=== PATIENT | female | born 1990 | race Hispanic/Latino ===

== ENCOUNTER 2022-02-19 01:04 | Emergency (ER) | payer SELFPAY ==
[2022-02-19] MEDS ORDERED: SODIUM CHLORIDE 0.9% 1000 ML 1,000 ML IV ONE (03:26)
[2022-02-19] MEDS ORDERED: NALOXONE 2 MG/2 ML INJ IV ONE (03:26)
[2022-02-19 04:01] LABS: Hematocrit 37.5 % (30.3-42.9); Hemoglobin 11.9 gm/dl (10.1-14.3); Mean Corpuscular HGB Conc 32 % (30-34); Mean Corpuscular Volume 80 fl (79-97); Platelet Count 256 K/mm3 (140-440); Red Blood Count 4.71 M/mm3 (3.65-5.03); Red Cell Distribution Width 20.9 % (13.2-15.2)
--- NOTE | 2022-02-19 04:20 | Emergency Department Report ---
ED General Adult HPI - General Chief complaint: Overdose Stated complaint: OVERDOSE PUI?: No Time Seen by Provider: 02/19/22 03:24 Source: patient Mode of arrival: Wheelchair Limitations: No Limitations - History of Present Illness Initial comments: This is a 31-year-old female brought in by EMS with concern of overdose which sridevi botello's friend left him at an hotel. Per EMS, pranav responded well to Narcan after it was given. On arrival patient is asleep again and hard to arouse on my arrival. - Related Data Previous Rx's Medication Instructions Recorded Last Taken Type Naloxone HCl [Narcan Nasal [place]] 4 mg NS PRN #2 spray 02/19/22 Unknown Rx Allergies Allergy/AdvReac Type Severity Reaction Status Date / Time Unable to Assess Allergy Verified 02/19/22 03:42 ED Review of Systems ROS: Stated complaint: OVERDOSE Other details as noted in HPI Comment: Unobtainable due to pts medical conditions Constitutional: no symptoms reported Eyes: as per HPI ENT: as per HPI Respiratory: no symptoms reported Cardiovascular: as per HPI Endocrine: no symptoms reported, see HPI Gastrointestinal: as per HPI Genitourinary: as per HPI Musculoskeletal: as per HPI Skin: as per HPI Neurological: as per HPI Psychiatric: as per HPI Hematological/Lymphatic: as per HPI ED Past Medical Hx - Past Medical History Previous Medical History?: No - Surgical History Past Surgical History?: No - Social History Smoking Status: Never Smoker Substance Use Type: None - Medications Home Medications: Home Medications Medication Instructions Recorded Confirmed Last Taken Type Naloxone HCl [Narcan Nasal [place]] 4 mg NS PRN #2 spray 02/19/22 Unknown Rx ED Physical Exam - General Limitations: No Limitations General appearance: in no apparent distress, other (ASLEEP) - Head Head exam: Present: atraumatic, normocephalic, normal inspection - Eye Eye exam: Present: normal appearance, PERRL, EOMI - ENT ENT exam: Present: normal exam - Neck Neck exam: Present: normal inspection - Respiratory Respiratory exam: Present: normal lung sounds bilaterally, other (NORMAL BREATHING PATTERN). Absent: respiratory distress - Cardiovascular Cardiovascular Exam: Present: regular rate, normal rhythm - GI/Abdominal GI/Abdominal exam: Present: soft - Extremities Exam Extremities exam: Present: normal inspection, full ROM, normal capillary refill - Back Exam Back exam: Present: normal inspection, full ROM - Neurological Exam Neurological exam: Present: alert, altered, oriented X3, CN II-XII intact, normal gait - Psychiatric Psychiatric exam: Present: normal affect, normal mood - Skin Skin exam: Present: normal color ED Course Vital Signs 02/19/22 01:04 Temperature 98 F Pulse Rate 77 Respiratory 18 Rate Blood Pressure 102/70 O2 Sat by Pulse 100 Oximetry - Reevaluation(s) Reevaluation #1: 02/19/22 05:12 PATIENT EASILY AWAKEN BY NURSING AND X-RAY TECH STAFF. LABS UNREMARKABLE; AND STILL PENDING UDS. CXR WITH MILD PULMONARY EDEMA AND PATIENT SATING WELL ON ROOM AIR WITHOUT ANY ACCESSORY MUSCLE USE. I WILL GO AHEAD AND D/C THE PATIENT MOTHER IS HERE. SHE IS TO MAKE A FOLLOW UP APPOINTMENT WITH PCP TO BE SEEN WITHIN 3 DAYS. RETURN TO ER IF ANY NEW SYMPTOMS. ED Medical Decision Making - Lab Data Result diagrams: 02/19/22 03:41 02/19/22 03:41 Critical care attestation.: If time is entered above; I have spent that time in minutes in the direct care of this critically ill patient, excluding procedure time. ED Disposition Clinical Impression: Opioid overdose, Pulmonary edema Disposition: 01 HOME / SELF CARE / HOMELESS Is pt being admited?: No Does the pt Need Aspirin: No Condition: Stable Instructions: Pulmonary Edema (ED), Opioid Overdose, Pulmonary Edema, [id number] Additional Instructions: MAKE A FOLLOW UP APPOINTMENT WITH YOUR PRIMARY CARE PROVIDER TO BE SEEN WITHIN 3 DAYS FOR YOUR MILD PULMONARY EDEMA. Prescriptions: Naloxone HCl [Narcan Nasal [place]] 4 mg NS PRN #2 spray Time of Disposition: 05:12
[2022-02-19 04:21] LABS: Alanine Aminotransferase 117 units/L (7-56); Blood Urea Nitrogen 9 mg/dL (7-17); Calcium 9.5 mg/dL (8.4-10.2); Hemolysis Index 4
[2022-02-19 04:23] LABS: BUN/Creatinine Ratio 13
--- NOTE | 2022-02-19 05:10 | XRay Report ---
CHEST 1 VIEW 02/19/2022 4:01 AM INDICATION / CLINICAL INFORMATION: OVERDOSE. COMPARISON: None available. FINDINGS: SUPPORT DEVICES: None. HEART / MEDIASTINUM: No significant abnormality. LUNGS / PLEURA: Mild pulmonary vascular indistinctness. No pneumothorax. ADDITIONAL FINDINGS: No significant additional findings. IMPRESSION: 1. Mild pulmonary edema. Signer Name: Keaton Light DO Signed: 02/19/2022 5:06 AM Workstation Name: [id number]
[2022-02-19 05:44] LABS: Bilirubin,Urine NEG (Negative); Blood,Urine NEG (Negative); Color,Urine Amber (Yellow)
[2022-02-19 05:48] LABS: Mucus,Urine 2+ /HPF
[2022-02-19 05:54] LABS: Amphetamine Screen,Urine PRESUMPTIVE POSITIVE; Benzodiazepines Screen,Urine PRESUMPTIVE POSITIVE; Cannabinoid Screen,Urine PRESUMPTIVE POSITIVE; Cocaine Screen,Urine PRESUMPTIVE NEGATIVE; Methadone Screen,Urine PRESUMPTIVE NEGATIVE; Opiate Screen,Urine PRESUMPTIVE NEGATIVE
[2022-02-19 05:57] VITALS: BP 118/78
== END 2022-02-19 05:58 | disposition home or self-care (01) ==
LOC: ED 01:04
DX: T40.2X1A Poisoning by other opioids, accidental (unintentional), initial encounter (principal); J81.1 Chronic pulmonary edema; Y92.89 Other specified places as the place of occurrence of the external cause
CPT/HCPCS: 36415; 71045; 80053; 80307; 81001; 83735; 84703; 85027; 96361; 96374; 99284; J2310; J7030; 80320; G0480